=== PATIENT | female | born 1995 | race Caucasian/White ===

== ENCOUNTER 2017-02-14 12:03 | Emergency (ER) | payer OTHER ==
[2017-02-14 12:11] VITALS: BMI 23.6
--- NOTE | 2017-02-14 12:48 | PDOC ---
History of Present Illness - General Chief Complaint: Vaginal Bleeding Stated Complaint: BLEEDING (8 WKS ) Time Seen by Provider: 02/14/17 12:16 History Source: Patient Exam Limitations: No Limitations - History of Present Illness Initial Comments: 21yo F 8-weeks with no significant PMH presents c/o vaginal bleeding. Pt reports tight cramping yesterday followed by 2 episodes of nbnb vomiting yesterday evening. Overnight she had 1 episode of diarrhea. 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 Today she had some light vaginal bleeding and came straight to the ER. Bleeding is brown in color, no clots, she has not used a pad yet. She noticed the blood when wiping herself after urinating. Pt reports getting an US at [facility] 3 weeks ago which revealed the ' fetus was bleeding' (perhaps subchorionic hemorrhage). She has tried to schedule a f/u US here at [facility] over the last 2 weeks, but has been unable to secure an appt. Pt gave via vaginal delivery here in 05/2014. She came to ER in 09/2013, at 8 weeks , with light vaginal bleeding. Pt is not currently having any abdominal/pelvic pain. OBGYN: Dr. Gregoria Chavez at [address] [place] [address] 02/14/17 12:39 Past History - Past Medical History Allergies/Adverse Reactions: Allergies Allergy/AdvReac Type Severity Reaction Status Date / Time No Known Allergies Allergy Verified 05/09/14 08:52 Home Medications: Ambulatory Orders Cephalexin [Keflex] 500 mg PO BID #14 capsule 02/14/17 Asthma: No Cancer: No Cardiac Disorders: No Diabetes: No HTN: No Suicide Attempt (Hx): No Seizures: No Thyroid Disease: No - Reproductive History LMP comment: 12/08/16 Is Patient Now?: Yes (8weeks) (#): 2 Para: 1 Spontaneous : 0 - Immunization History Immunization Up to Date: Yes - Psycho/Social/Smoking Cessation Hx Anxiety: No Suicidal Ideation: No Smoking History: Never smoked Have you smoked in the past 12 months: No Hx Alcohol Use: No Drug/Substance Use Hx: No Substance Use Type: None Hx Substance Use Treatment: No Review of Systems - Review of Systems Able to Perform ROS?: Yes Is the patient limited Telugu proficient: No Constitutional: No: Chills, Diaphoresis, Fever HEENTM: No: Recent change in vision, Ear Pain, Nose Pain, Throat Pain Respiratory: No: Cough, Orthopnea, Shortness of Breath, Stridor, Wheezing, Hemoptysis Cardiac (ROS): No: Chest Pain, Irregular Heart Rate, Palpitations ABD/GI: Yes: Diarrhea (once last night), Vomiting (twice yesterday evening), Abdominal cramping (yesterday afternoon, none now). No: Rectal Bleeding : Yes: Discharge (brownish bloody). No: Dysuria, Hematuria Musculoskeletal: Yes: Joint Pain (hip pain with walking x 1 mo). No: Muscle Pain Integumentary: No: Bruising, Lesions, Rash Neurological: No: Weakness, Unsteady Gait, Dizziness *Physical Exam - Vital Signs Last Vital Signs Temp Pulse Resp BP Pulse Ox 98.4 F 75 18 109/61 100 02/14/17 12:08 02/14/17 12:08 02/14/17 12:08 02/14/17 12:08 02/14/17 12:08 - Physical Exam General Appearance: Yes: Nourished, Appropriately Dressed. No: Apparent Distress HEENT: positive: EOMI, Normal Voice, Other (moist mucous membranes). negative: Pale Conjunctivae, Scleral Icterus (R), Scleral Icterus (L) Neck: positive: Trachea midline, Supple Respiratory/Chest: positive: Lungs Clear, Normal Breath Sounds. negative: Respiratory Distress, Accessory Muscle Use Cardiovascular: positive: Regular Rhythm, Regular Rate, S1, S2. negative: JVD Female Pelvic Exam: positive: cervical os closed, discharge (mild bloody discharge in vault). negative: CMT, adnexal tenderness Gastrointestinal/Abdominal: positive: Soft. negative: Distended, Guarding, Rebound, Tenderness Extremity: negative: Swelling, Calf Tenderness, Erythema Integumentary: positive: Dry, Warm. negative: Rash, Bruising Neurologic: positive: Fully Oriented, Alert, Normal Mood/Affect, Normal Response , Motor Strength 5/5 ED Treatment Course - LABORATORY CBC & Chemistry Diagram: 02/14/17 12:46 02/14/17 12:35 - RADIOLOGY Radiology Studies Ordered: Category Date Time Status TRANSVAGINAL ULTRASOUND US [US] Stat Ultrasound 02/14/17 12:38 Ordered Medical Decision Making - Medical Decision Making 21yo F 8-weeks with no significant PMH presents c/o vaginal bleeding. Pt not currently having any abomdinal/pelvic pain, nausea, vomiting, or diarrhea. Afebrile. Pelvic exam reveals closed cervical os, + mild bloody discharge in vault, - cervical motion tenderness and - adnexal tenderness. UA, urine culture urine chlamydia and gonorrhea CBC with diff, CMP, type and screen, serum transvaginal US 02/14/17 13:26 02/14/17 14:59 UA (+) UTI -> Keflex prescription sent urine chlamydia and gonorrhea results will be back in 2 days. Will call pt if results are (+). CBC with diff and CMP unremarkable beta HCG 78,200 US - reveals single IUP 8 weeks 5 days, with heart rate of 174. Pt can go home. Instructions given for strict pelvic rest (no tampons, no intercourse) until she is seen by OBGYN. *DC/Admit/Observation/Transfer Diagnosis at time of Disposition: Threatened - Discharge Dispostion Disposition: HOME Condition at time of disposition: Improved Admit: No - Prescriptions Prescriptions: Cephalexin [Keflex] 500 mg PO BID #14 capsule - Patient Instructions Printed Discharge Instructions: DI for Threatened Additional Instructions: Please follow strict pelvic rest (nothing in the vagina: no tampons, no intercourse) until you can be seen by your OBGYN Dr. Gregoria Chavez. Please follow-up with OBGYN. Please warp picker prescription for Keflex and take as directed for your Urinary Tract Infection. - Post Discharge Activity Work/School Note: Back to Work
[2017-02-14 12:53] LABS: BASOPHIL 0.4 % (0-2.0); EOSINOPHIL 0.5 % (0-4.5); MCH 28.1 pg (25.7-33.7); MCHC 32.6 g/dl (32.0-36.0); MEAN CELL VOLUME 86.2 fl (80-96); MEAN PLT VOLUME 7.1 fl (7.5-11.1); NEUTROPHILS 80.3 % (42.8-82.8); PLATELET COUNT 229 K/MM3 (134-434); RDW 13.4 % (11.6-15.6); WHITE BLOOD COUNT 8.6 K/mm3 (4.0-10.0)
[2017-02-14 12:55] LABS: URINE APPEARANCE CLOUDY; URINE BILIRUBIN NEGATIVE (NEGATIVE); URINE BLOOD 2+ (NEGATIVE); URINE COLOR AMBER; URINE GLUCOSE (UA) NEGATIVE (NEGATIVE); URINE KETONE NEGATIVE (NEGATIVE); URINE NITRITE NEGATIVE (NEGATIVE); URINE UROBILINOGEN NEGATIVE mg/dL (0.2-1.0)
[2017-02-14 13:06] LABS: URINE LEUK ESTERASE 3+ (NEGATIVE); URINE PROTEIN 1+ (NEGATIVE)
--- NOTE | 2017-02-14 13:08 | PDOC ---
Attending Attestation - Resident Resident Name: Ibis Whitley - ED Attending Attestation I have performed the following: I have examined & evaluated the patient, The case was reviewed & discussed with the resident, I agree w/resident's findings & plan, Exceptions are as noted - Physicial Exam PE: : No external lesions. +Mild bloody discharge in the vault. Os closed. No adnexal tenderness. - Medical Decision Making 02/14/17 13:06 Pt with first trimester bleeding. She has prior sono confirming IUP (from her description it sounds as if she had a subchorionic hemorrhage). Will obtain labs and sono to further evaluate. <Cheryl Caruso - Last Filed: 02/14/17 13:06> - HPI HPI: 02/14/17 13:49 The patient is a 21 year old female 8 weeks , with no significant past medical history who presents to the emergency department with vaginal bleeding and abdominal pain today. Patient reports lower abdominal cramping, 4/ 10 in severity with associated vomiting (nonbilious, nonbloody) and diarrhea since yesterday. Patient states she noticed the bleeding after wiping when using the restroom. Patient states the blood is brown with no clots. She denies chest pain, headache or dizziness. She denies fever, chills, abdominal pain, nausea, vomit, diarrhea or constipation. She denies dysuria, frequency, urgency or hematuria. Allergies: NKA Past surgical history: None Social history: None PCP: None - Physicial Exam PE: 02/14/17 13:49 GENERAL: Awake, alert, and fully oriented, in no acute distress HEAD: No signs of trauma EYES: PERRLA, EOMI, sclera anicteric, conjunctiva clear ENT: Auricles normal inspection, hearing grossly normal, nares patent, oropharynx clear without exudates. Moist mucosa NECK: Normal ROM, supple, no lymphadenopathy, JVD, or masses LUNGS: Breath sounds equal, clear to auscultation bilaterally. No wheezes, and no crackles HEART: Regular rate and rhythm, normal S1 and S2, no murmurs, rubs or gallops ABDOMEN: Soft, nontender, normoactive bowel sounds. No guarding, no rebound. No masses EXTREMITIES: Normal range of motion, no edema. No clubbing or cyanosis. No cords, erythema, or tenderness NEUROLOGICAL: Cranial nerves II through XII grossly intact. Normal speech, normal gait SKIN: Warm, Dry, normal turgor, no rashes or lesions noted. - Medical Decision Making 02/14/17 13:49 Documentation prepared by Maria E Llanes, acting as medical office technologist for Cheryl Caruso MD <Maria E Llanes - Last Filed: 02/14/17 13:49>
[2017-02-14 13:14] LABS: ALBUMIN 3.5 g/dl (3.4-5.0); ALK PHOS 66 U/L (45-117); ANION GAP 8 (8-16); BILIRUBIN,TOTAL 0.6 mg/dL (0.2-1.0); CALCIUM 8.5 mg/dL (8.5-10.1); CO2 24 mmol/L (21-32); CREATININE 0.5 mg/dL (0.55-1.02); GLUCOSE,RANDOM 113 mg/dL (74-106); SGOT/AST 19 U/L (15-37); SGPT/ALT 23 U/L (12-78); TOT PROT 6.7 g/dl (6.4-8.2)
[2017-02-14 13:17] LABS: URINE MUCUS MANY; URINE RBC 1 /hpf (0-3); URINE WBC 16 /hpf (3-5)
[2017-02-14] MEDS ORDERED: AZITHROMYCIN 1 GM PACKET PO ONE (14:48)
[2017-02-14] MEDS ORDERED: AZITHROMYCIN 250 MG TABLET ONE (14:53)
[2017-02-14] MEDS ORDERED: LIDOCAINE HCL 1%, 10 MG/ML (20ML VIAL) ONE (14:54)
[2017-02-14] MEDS ORDERED: cefTRIAXone SODIUM 1 GM VIAL ONE (14:54)
[2017-02-14] MEDS ORDERED: ONDANSETRON 8 MG TABLET (FP) PO ONE (15:30)
[2017-02-14] MEDS ORDERED: ONDANSETRON *ODT* 4 MG TABLET ONE (15:30)
[2017-02-14 15:45] VITALS: BP 110/73; PULSE 82; TEMP 98.2
== END 2017-02-14 15:45 | disposition home or self-care (01) ==
LOC: JER 12:03
DX: O20.0 Threatened abortion (principal); O23.41 Unspecified infection of urinary tract in pregnancy, first trimester; Z3A.08 8 weeks gestation of pregnancy
CPT/HCPCS: 36415; 76801-TC; 80053; 81003; 81015; 84702; 85025; 86850; 86900; 86901; 87086; 87491; 87591; 99284-25

== ENCOUNTER 2017-02-20 16:27 | Emergency (ER) | payer OTHER ==
[2017-02-20 16:39] VITALS: BP 99/63; PULSE 94; TEMP 98.5; BMI 23.6
--- NOTE | 2017-02-20 17:10 | PDOC ---
History of Present Illness - General History Source: Patient Exam Limitations: No Limitations - History of Present Illness Initial Comments: 02/20/17 18:05 21 y/o female () with no PMHx presents to the ED with vaginal bleeding. Patient reports she woke up with blood on her sheets around 4 am this morning. She reports she has had spotting throughout the but she became concerned because this episode of bleeding was heavier than others. She states she is currently not bleeding anymore. She reports current back pain and vaginal soreness. She also reports daily vomiting due to morning sickness. Patient was seen in the ED on 02/14/17 for similar symptoms, and was discharged on Keflex for a UTI. Her most recent US showed an increased HR, but a viable IUP. Denies fever, chills. Denies chest pain, SOB. Denies abdominal pain. Allergies: none SHx: No tobacco, alcohol, drug use. RETAIL ASSET PROTECTION SPECIALIST: Gregoria Soto CNM <Caro Block - Last Filed: 02/20/17 21:33> <Cheryl Caruso - Last Filed: 02/21/17 00:53> - General Chief Complaint: Vaginal Bleeding Stated Complaint: VAGINAL BLEEDING Time Seen by Provider: 02/20/17 17:03 Past History <Caro Block - Last Filed: 02/20/17 21:33> - Past Medical History Asthma: No Cancer: No Cardiac Disorders: No Diabetes: No HTN: No Suicide Attempt (Hx): No Seizures: No Thyroid Disease: No Other medical history: DENIES. - Surgical History Abdominal Surgery: Yes (HERNIA) - Reproductive History (#): 2 Para: 1 Spontaneous : 0 - Immunization History Immunization Up to Date: Yes - Psycho/Social/Smoking Cessation Hx Anxiety: No Suicidal Ideation: No Smoking History: Never smoked Have you smoked in the past 12 months: No Number of Cigarettes Smoked Daily: 2 Hx Alcohol Use: No Drug/Substance Use Hx: No Substance Use Type: None Hx Substance Use Treatment: No <Cheryl Caruso - Last Filed: 02/21/17 00:53> - Past Medical History Allergies/Adverse Reactions: Allergies Allergy/AdvReac Type Severity Reaction Status Date / Time No Known Allergies Allergy Verified 02/20/17 16:35 Home Medications: Ambulatory Orders Cephalexin [Keflex] 500 mg PO BID #14 capsule 02/14/17 Review of Systems - Review of Systems Able to Perform ROS?: Yes Comments:: 02/20/17 18:05 GENERAL/CONSTITUTIONAL: No fever or chills. No weakness. HEAD, EYES, EARS, NOSE AND THROAT: No change in vision. No ear pain or discharge. No sore throat. CARDIOVASCULAR: No chest pain or shortness of breath. RESPIRATORY: No cough, wheezing, or hemoptysis. GASTROINTESTINAL: (+) vomiting. No diarrhea or constipation. GENITOURINARY: (+) vaginal bleeding, vaginal soreness. No dysuria, frequency, or change in urination. MUSCULOSKELETAL: (+) back pain. No joint or muscle swelling or pain. No neck pain. SKIN: No rash NEUROLOGIC: No headache, vertigo, loss of consciousness, or change in strength/ sensation. ENDOCRINE: No increased thirst. No abnormal weight change. HEMATOLOGIC/LYMPHATIC: No anemia, easy bleeding, or history of blood clots. ALLERGIC/IMMUNOLOGIC: No hives or skin allergy. <Caro Block - Last Filed: 02/20/17 21:33> *Physical Exam - Vital Signs Last Vital Signs Temp Pulse Resp BP Pulse Ox 98.5 F 94 H 19 99/63 99 02/20/17 16:35 02/20/17 16:35 02/20/17 16:35 02/20/17 16:35 02/20/17 16:35 <Caro Block - Last Filed: 02/20/17 21:33> - Vital Signs Last Vital Signs Temp Pulse Resp BP Pulse Ox 98.5 F 94 H 19 99/63 99 02/20/17 16:35 02/20/17 16:35 02/20/17 16:35 02/20/17 16:35 02/20/17 16:35 - Physical Exam Comments: GENERAL: Awake, alert, and fully oriented, in no acute distress HEAD: No signs of trauma EYES: PERRLA, EOMI, sclera anicteric, conjunctiva clear ENT: Auricles normal inspection, hearing grossly normal, nares patent, oropharynx clear without exudates. Moist mucosa NECK: Normal ROM, supple, no lymphadenopathy, JVD, or masses LUNGS: Breath sounds equal, clear to auscultation bilaterally. No wheezes, and no crackles HEART: Regular rate and rhythm, normal S1 and S2, no murmurs, rubs or gallops ABDOMEN: Soft, nontender, normoactive bowel sounds. No guarding, no rebound. No masses EXTREMITIES: Normal range of motion, no edema. No clubbing or cyanosis. No cords, erythema, or tenderness NEUROLOGICAL: Cranial nerves II through XII grossly intact. Normal speech, normal gait SKIN: Warm, Dry, normal turgor, no rashes or lesions noted. : No external lesions. +Mild yellow discharge. Os closed. No adnexal tenderness or CMT. <Cheryl Caruso - Last Filed: 02/21/17 00:53> ED Treatment Course - LABORATORY CBC & Chemistry Diagram: 02/20/17 17:10 02/20/17 17:10 - RADIOLOGY Radiograph Interpretation: 02/20/17 21:33 Transvaginal US: Reported by Dr. Milan Bill Impression: Single viable uterine gestation at approximately 9 weeks 6 days. No definite sonographic abnormality is identified. <Caro Block - Last Filed: 02/20/17 21:33> - LABORATORY CBC & Chemistry Diagram: 02/20/17 17:10 02/20/17 17:10 <Cheryl Caruso - Last Filed: 02/21/17 00:53> Medical Decision Making - Medical Decision Making Sono results reviewed with patient. We also discussed her labs- B-HCG is decreased from prior exam 6 days ago. However, at present, there is still a heart beat. Recommended close outpatient shop cooper f/u. She has an appointment on Thursday (it is currently Thursday). Return to ED if any heavy bleeding, lightheadedness, or any other concerns. <Cheryl Caruso - Last Filed: 02/21/17 00:53> *DC/Admit/Observation/Transfer - Attestations Scribe Attestion: 02/20/17 18:05 Documentation prepared by Caro Block, acting as biomedical scientist for Cheryl Caruso MD. <Caro Block - Last Filed: 02/20/17 21:33> - Discharge Dispostion Admit: No <Cheryl Caruso - Last Filed: 02/21/17 00:53> Diagnosis at time of Disposition: Threatened - Discharge Dispostion Disposition: HOME Condition at time of disposition: Stable - Patient Instructions Printed Discharge Instructions: DI for Threatened Additional Instructions: Consulte a oliver gineclogo el young segn lo programado. Regrese a la janine de emergencias para sangrado abundante, debilidad o cualquier otra preocupacin. Print Language: VATICAN CITIZEN - Post Discharge Activity Work/School Note: Back to Work
[2017-02-20] MEDS ORDERED: SODIUM CHLORIDE 1,000 ML IV STA (17:39)
[2017-02-20 18:06] LABS: BASOPHIL 0.3 % (0-2.0); EOSINOPHIL 0.8 % (0-4.5); MCH 28.6 pg (25.7-33.7); MCHC 33.5 g/dl (32.0-36.0); MEAN CELL VOLUME 85.5 fl (80-96); MEAN PLT VOLUME 7.4 fl (7.5-11.1); NEUTROPHILS 75.6 % (42.8-82.8); PLATELET COUNT 248 K/MM3 (134-434); RDW 13.3 % (11.6-15.6); WHITE BLOOD COUNT 9.3 K/mm3 (4.0-10.0)
[2017-02-20 18:28] LABS: ALBUMIN 3.3 g/dl (3.4-5.0); ANION GAP 5 (8-16); CALCIUM 8.7 mg/dL (8.5-10.1); CO2 26 mmol/L (21-32); CREATININE 0.4 mg/dL (0.55-1.02); GLUCOSE,RANDOM 80 mg/dL (74-106); SGOT/AST 14 U/L (15-37); SGPT/ALT 22 U/L (12-78)
[2017-02-20 18:43] LABS: ALK PHOS 65 U/L (45-117); BILIRUBIN,TOTAL 0.3 mg/dL (0.2-1.0); TOT PROT 6.6 g/dl (6.4-8.2)
== END 2017-02-20 21:44 | disposition home or self-care (01) ==
LOC: JER 16:27
DX: O20.0 Threatened abortion (principal); Z3A.09 9 weeks gestation of pregnancy
CPT/HCPCS: 36415; 76817-TC; 80053; 84702; 85025; 86850; 86900; 86901; 99285-25

== ENCOUNTER 2017-04-23 16:59 | Emergency (ER) | payer OTHER ==
[2017-04-23 17:05] VITALS: BP 115/71; PULSE 78; TEMP 97.8; BMI 24.6
[2017-04-23] MEDS ORDERED: SODIUM CHLORIDE 1,000 ML IV STA (17:06)
--- NOTE | 2017-04-23 17:07 | PDOC ---
Rapid Medical Evaluation Time Seen by Provider: 04/23/17 17:02 Medical Evaluation: Allergies Allergy/AdvReac Type Severity Reaction Status Date / Time No Known Allergies Allergy Verified 02/20/17 16:35 04/23/17 17:02 I have performed a brief in-person evaluation of this patient. The patient presents with a chief complaint of: dizziness for 1 week Pertinent physical exam findings: Neuro: CN2-12 grossly intact. Gait steady. Pulm: CTAB Cards: RRR. S1S2 present. No M/R/G. I have ordered the following: EKG, CBC, BMP, H/L, NS 1L bolus The patient will proceed to the ED for further evaluation. Discharge Disposition - Diagnosis Dizziness - Referrals - Patient Instructions - Post Discharge Activity
[2017-04-23 17:26] LABS: BASOPHIL 0.2 % (0-2.0); EOSINOPHIL 0.5 % (0-4.5); MCH 28.3 pg (25.7-33.7); MCHC 33.6 g/dl (32.0-36.0); MEAN PLT VOLUME 7.3 fl (7.5-11.1); NEUTROPHILS 80.1 % (42.8-82.8); PLATELET COUNT 241 K/MM3 (134-434); WHITE BLOOD COUNT 9.9 K/mm3 (4.0-10.0)
[2017-04-23] MEDS ORDERED: SODIUM CHLORIDE 0.9% 1000 ML INFUS.BAG IV ONE (17:55)
[2017-04-23 17:59] LABS: ANION GAP 12 (8-16); CALCIUM 8.4 mg/dL (8.5-10.1); CO2 21 mmol/L (21-32); CREATININE 0.4 mg/dL (0.55-1.02); GLUCOSE,RANDOM 63 mg/dL (74-106)
--- NOTE | 2017-04-23 18:08 | PDOC ---
History of Present Illness <Rhea Yancey - Last Filed: 04/23/17 18:57> - History of Present Illness Initial Comments: 04/23/17 17:57 21 yo at 18 wga with no significant pmh who presents with lightheadedness. 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 States that she was sitting down and stood up to receive a customers payment and shortly after she became lightheaded, and developed loss of vision bilaterally for 20 second. Symptoms resolved after patient crouched down on her knees and resolved spontaneously. Denies chest pain , SOB, fevers/chills, N/V, urinary complaints, GI/ abdominal pain, LOC. Endorses episodes of lightheadedness over the past 2-[address] Gregoria Soto FILM DEVELOPING MACHINE OPERATOR and PCP. <Fei Sadler - Last Filed: 04/23/17 19:03> - General Chief Complaint: Lightheaded Stated Complaint: DIZZINESS/17 WEEKS PRENANT. Time Seen by Provider: 04/23/17 17:02 Past History <Rhea Yancey - Last Filed: 04/23/17 18:57> - Past Medical History Asthma: No Cancer: No Cardiac Disorders: No COPD: No Diabetes: No HTN: No Seizures: No Thyroid Disease: No Other medical history: DENIES - Surgical History Abdominal Surgery: Yes (HERNIA) - Reproductive History (#): 2 Para: 1 Spontaneous : 0 - Immunization History Immunization Up to Date: Yes - Suicide/Smoking/Psychosocial Hx Smoking History: Never smoked Have you smoked in the past 12 months: No Number of Cigarettes Smoked Daily: 2 Hx Alcohol Use: No Drug/Substance Use Hx: No Substance Use Type: None Hx Substance Use Treatment: No <Fei Sadler - Last Filed: 04/23/17 19:03> - Past Medical History Allergies/Adverse Reactions: Allergies Allergy/AdvReac Type Severity Reaction Status Date / Time No Known Allergies Allergy Verified 04/23/17 17:02 Home Medications: Ambulatory Orders Ferrous Gluconate [Fergon -] 324 mg PO DAILY 04/23/17 [id number]/Iron Fumarate/FA/Dss [ 19 Tablet] 1 each PO DAILY 04/23/17 Review of Systems - Review of Systems Comments:: 04/23/17 18:09 GENERAL/CONSTITUTIONAL: No fever or chills. No weakness. HEAD, EYES, EARS, NOSE AND THROAT: No change in vision. No ear pain or discharge. No sore throat.- CARDIOVASCULAR: No chest pain or shortness of breath RESPIRATORY: No cough, wheezing, or hemoptysis. GASTROINTESTINAL: No nausea, vomiting, diarrhea or constipation. GENITOURINARY: No dysuria, frequency, or change in urination. MUSCULOSKELETAL: No joint or muscle swelling or pain. No neck or back pain. SKIN: No rash NEUROLOGIC: + lightheadedness. No headache, vertigo, loss of consciousness, or change in strength/sensation. ENDOCRINE: No increased thirst. No abnormal weight change HEMATOLOGIC/LYMPHATIC: No anemia, easy bleeding, or history of blood clots. ALLERGIC/IMMUNOLOGIC: No hives or skin allergy. <Fei Sadler - Last Filed: 04/23/17 19:03> *Physical Exam - Vital Signs Last Vital Signs Temp Pulse Resp BP Pulse Ox 97.8 F 78 19 115/71 98 04/23/17 17:02 04/23/17 17:02 04/23/17 17:02 04/23/17 17:02 04/23/17 17:02 <Rhea Yancey - Last Filed: 04/23/17 18:57> - Vital Signs Last Vital Signs Temp Pulse Resp BP Pulse Ox 97.8 F 78 19 115/71 98 04/23/17 17:02 04/23/17 17:02 04/23/17 17:02 04/23/17 17:02 04/23/17 17:02 - Physical Exam Comments: 04/23/17 18:11 GENERAL: Awake, alert, and fully oriented, in no acute distress HEAD: No signs of trauma, normocephalic, atraumatic EYES: PERRLA, EOMI, sclera anicteric, conjunctiva clear ENT: Hearing grossly normal, nares patent, oropharynx clear without exudates. Moist mucosa NECK: Normal ROM, no JVD, or masses LUNGS: No distress, speaks full sentences, clear to auscultation bilaterally HEART: Regular rate and rhythm, normal S1 and S2, no murmurs, rubs or gallops, peripheral pulses normal and equal bilaterally. ABDOMEN: Soft, nontender, normoactive bowel sounds. No guarding, no rebound. No masses EXTREMITIES : Normal inspection, Normal range of motion, no edema. No clubbing or cyanosis. NEUROLOGICAL: Cranial nerves II through XII grossly intact. Normal speech, normal gait, no focal sensorimotor deficits SKIN: Warm, Dry, normal turgor, no rashes or lesions noted. 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 Other: FHR 160 BPM <Rhea Yancey - Last Filed: 04/23/17 18:57> Heart Score/ECG Review - History History: Slightly suspicious - Electrocardiogram EKG: Normal - ECG Intrepretation Rhythm: Regular Rhythm - Orland Orland: Normal - ST and T Comment:: 04/23/17 18:14 T wave inversion in lead III <Fei Sadler - Last Filed: 04/23/17 19:03> ED Treatment Course - LABORATORY CBC & Chemistry Diagram: 04/23/17 17:10 04/23/17 17:10 - ADDITIONAL ORDERS Additional order review: Laboratory Results 04/23/17 04/23/17 04/23/17 18:20 18:20 17:10 Sodium 137 Potassium 3.5 D Chloride 104 Carbon Dioxide 21 Anion Gap 12 BUN 10 D Creatinine 0.4 L Random Glucose 63 L D Calcium 8.4 L Urine Color Ltyellow Urine Appearance Slcloudy Urine pH 5.0 Ur Specific [place] 1.014 Urine Protein Negative Urine Glucose (UA) Negative Urine Ketones Negative Urine Blood Negative Urine Nitrite Negative Urine Bilirubin Negative Urine Urobilinogen Negative Urine HCG, Qual Positive 04/23/17 17:10 RBC 4.29 MCV 84.0 MCHC 33.6 RDW 13.0 MPV 7.3 L Neutrophils % 80.1 Lymphocytes % 12.4 D Monocytes % 6.8 Eosinophils % 0.5 Basophils % 0.2 - Medications Given in the ED: ED Medications Discontinued Medications Generic Name Dose Route Start Last Admin Trade Name Freq PRN Reason Stop Dose Admin Sodium Chloride 1,000 mls @ 1,000 mls/hr 04/23/17 17:06 04/23/17 17:43 Normal Saline - IV 04/23/17 18:05 1,000 mls/hr ASDIR STA Administration Sodium Chloride 1,000 ml 04/23/17 17:55 11/16/17 18:23 Normal Saline - IV 04/23/17 17:56 1,000 ml ONCE ONE Administration <Rhea Yancey - Last Filed: 04/23/17 18:57> - LABORATORY CBC & Chemistry Diagram: 04/23/17 17:10 04/23/17 17:10 - ADDITIONAL ORDERS Additional order review: 04/23/17 17:10 RBC 4.29 MCV 84.0 MCHC 33.6 RDW 13.0 MPV 7.3 L Neutrophils % 80.1 Lymphocytes % 12.4 D Monocytes % 6.8 Eosinophils % 0.5 Basophils % 0.2 <Fei Sadler - Last Filed: 04/23/17 19:03> Medical Decision Making - Medical Decision Making 04/23/17 18:58 Focused ED ultrasound OB, transabdominal. Indication: Evaluate well-being Uterus scanned into planes. movement noted. 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 Briefly developed loss of vision bilaterally for 20 seconds. Symptoms resolved spontaneously. Denies chest pain, SOB, fevers/chills, N/V, urinary complaints, GI/ abdominal pain, LOC. Physical exam benign and pt. hemodynamically stable. Symptoms most likely suggestive of orthostasis related to or dehydration. Will obtain EKG to assess for dysarrythmia., as well as obtain basic metabolic workup to assess for underlying electrolyte abnormality vs anemia. ED course: 7 2 L NS CBC: Unremarkable EKG: NSR with T wave inversion in lead III. Absent KHADIJAH, or STD. CMP: 04/23/17 19:02 Bedside U/S reveals viable intrauterine gestation with normal FHR. . 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 <Fei Sadler - Last Filed: 04/23/17 19:03> *DC/Admit/Observation/Transfer <Rhea Yancey - Last Filed: 04/23/17 18:57> - Discharge Dispostion Admit: No - Attestations Physician Attestion: 04/23/17 18:23 I attest to the documentation in this note. <Fei Sadler - Last Filed: 04/23/17 19:03> Diagnosis at time of Disposition: Dizziness - Discharge Dispostion Disposition: HOME Condition at time of disposition: Stable - Referrals Referrals: Gregoria Soto MD [Primary Care Provider] - - Patient Instructions Additional Instructions: Please return the emergency department with new or worsening symptom or concerns. Please follow up with your primary care provide within one week.
[2017-04-23 18:41] LABS: URINE APPEARANCE SLCLOUDY; URINE BILIRUBIN NEGATIVE (NEGATIVE); URINE BLOOD NEGATIVE (NEGATIVE); URINE COLOR LTYELLOW; URINE GLUCOSE (UA) NEGATIVE (NEGATIVE); URINE KETONE NEGATIVE (NEGATIVE); URINE NITRITE NEGATIVE (NEGATIVE); URINE PROTEIN NEGATIVE (NEGATIVE); URINE UROBILINOGEN NEGATIVE mg/dL (0.2-1.0)
--- NOTE | 2017-04-23 19:02 | PDOC ---
Attending Attestation - Resident Resident Name: Fei Sadler - ED Attending Attestation I have performed the following: I have examined & evaluated the patient, The case was reviewed & discussed with the resident, I agree w/resident's findings & plan, Exceptions are as noted - HPI HPI: 04/23/17 18:59 21-year-old female currently 18 weeks C or with a near syncopal episode. Patient describes feeling lightheaded with standing and walking over the last week. Denies vaginal bleeding or loss of fluid. No chest pain, palpitations, or shortness of breath. Today had an episode where she got extremely lightheaded. [place] like her vision was going black, resolved by sitting down and resting no other current complaints - Physicial Exam PE: 04/23/17 19:00 AWAKE ALERTNo acute distress. Lungs are clear bilaterally. Heart is regular without murmurs rubs or gallops. Abdomen is soft GRAVID, nontender. Extremities are warm well perfused no edema. Neuro alert and oriented 3 - Medical Decision Making 04/23/17 19:01 Differential: Calm and symptoms of , dehydration, anemia, infection such as UTI,. Plan labs, IV hydration, UA, and bedside ultrasound to evaluate well-being Focused ED ultrasound OB, transabdominal. Indication: Evaluate well-being Uterus scanned into planes. movement noted. heart rate measured at 160 bpm Impression: Normal heart rate live IUP CASSIE/ Doroteo
[2017-04-23 22:02] LABS: URINE LEUK ESTERASE Negative (NEGATIVE)
--- NOTE | 2017-04-24 10:02 | EKG ---
Test Reason : Blood Pressure : / mmHG Vent. Rate : 083 BPM Atrial Rate : 083 BPM P-R Int : 160 ms QRS Dur : 086 ms QT Int : 378 ms P-R-T Axes : 068 043 019 degrees QTc Int : 444 ms NORMAL SINUS RHYTHM T WAVE ABNORMALITY, CONSIDER ANTERIOR ISCHEMIA ABNORMAL ECG NO PREVIOUS ECGS AVAILABLE Confirmed by SRIKANTH KERN MD ([id number]) on 04/24/2017 10:02:35 AM Referred By: Confirmed By:SRIKANTH KERN MD
== END 2017-04-23 19:20 | disposition home or self-care (01) ==
LOC: JER 16:59
PROC: 3E0337Z Introduction of Electrolytic and Water Balance Substance into Peripheral Vein, Percutaneous Approach (ICD-10-PCS; principal; 2017-04-23)
DX: O26.892 Other specified pregnancy related conditions, second trimester (principal); R55 Syncope and collapse; Z3A.18 18 weeks gestation of pregnancy
CPT/HCPCS: 36415; 80048; 81003; 84703; 85025; 93005; 93010; 99282-25